=== PATIENT | female | born 1940 | race Caucasian/White ===

== ENCOUNTER → 2018-07-21 17:14 | Outpatient (CLI) | payer MEDICARE, OTHER ==
[2012-08-09 07:30] VITALS: BMI 39.2
[2018-07-21 20:17] LABS: ANION GAP 14.8 mmol/L (8-16); CALCIUM 8.8 mg/dL (8.5-10.1); CARBON DIOXIDE 25.8 mmol/L (21.0-32.0); CREATININE - SERUM 0.9 mg/dL (0.6-1.3); POTASSIUM - SERUM 4.6 mmol/L (3.5-5.1)
[2018-07-21 20:26] LABS: HEMATOCRIT 36.5 % (36.0-48.0); MCH 29.5 pg (26.0-34.0); MCV 97.9 fL (80.0-100.0); RBC 3.73 10x6/uL (4.00-5.40); WBC 8.9 10x3/uL (4.8-10.8)
[2018-07-21 20:27] LABS: BASOPHILS 0.3 % (0-2); EOSINOPHILS 7.7 % (0-7); IMMATURE GRANULOCYTES 0.2 % (0-5); LYMPHOCYTES 12.8 % (15-50); MCHC 30.1 g/dL (31.0-37.0); MONOCYTES 7.7 % (2-11); NEUTROPHILS 71.3 % (40-80); PLATELET COUNT 363 10x3/uL (130-400); RDW 13.6 % (11.5-14.5)
== END | disposition home or self-care (01) ==
LOC: D.LABREF 17:14
PROVIDERS: Internal Medicine Hematology
DX: L03.116 Cellulitis of left lower limb (principal)

== ENCOUNTER → 2020-01-26 16:55 | Outpatient (CLI) | payer MEDICARE, OTHER ==
[2012-08-09 07:30] VITALS: BMI 39.2
[2020-01-26 18:10] LABS: BACTERIA FEW /hpf (NEGATIVE); BILIRUBIN NEGATIVE (NEGATIVE); EPITHELIAL CELLS 0-5 /hpf (0-5); GLUCOSE NEGATIVE (NEGATIVE); KETONE NEGATIVE (NEGATIVE); NITRITE NEGATIVE (NEGATIVE); UROBILINOGEN NORMAL (NORMAL)
== END | disposition home or self-care (01) ==
LOC: D.LABREF 16:55
PROVIDERS: ATTEND Family Medicine
DX: N39.0 Urinary tract infection, site not specified (principal)